=== PATIENT | female | born 1940 | race Caucasian/White ===

== ENCOUNTER 2023-05-14 13:45 | Emergency (ER) | payer MEDICARE, SELFPAY ==
--- NOTE | ~2023-05-14 | XR_ITS ---
EXAMINATION: XR chest 2V 05/14/2023 14:25 INDICATION: Cough. Coarse breath sounds. PROCEDURE: 2 view chest COMPARISON: No prior studies for comparison. FINDINGS: The lungs are clear. The cardiomediastinal silhouette is within normal limits. There are no pleural effusions. There is no pneumothorax suspected. IMPRESSION: 1: NO ACUTE CARDIOPULMONARY DISEASE. Reviewed, dictated and finalized at location B. [employer]
[2023-05-14 14:01] VITALS: BP 153/65; PULSE 100; RESP 20; TEMP 36.4; O2SAT 98
--- NOTE | 2023-05-14 14:07 | ED.URI ---
HPI - URI/Sore Throat General Chief Complaint: Upper Respiratory Infection Stated Complaint: cough/cold Time Seen by Provider: 05/14/23 14:07 Source: patient Mode of arrival: ambulatory Limitations: no limitations History of Present Illness HPI Narrative: 83 yo F presents with c/o cough, chest congestion for 5 days. Afebrile. Denies CP/SOB. Not getting any OTC meds to treat symptoms. Had neg covid test at assisted living. Pt's daughter said nurse at assisted livign said lungs dont sound good . All systems reviewed and negative except as noted above. Related Data Home Medications Medication Instructions Recorded Confirmed escitalopram oxalate 10 mg tablet mg 05/14/23 lamotrigine 25 mg tablet mg 05/14/23 lurasidone 20 mg tablet mg 05/14/23 Allergies Allergy/AdvReac Type Severity Reaction Status Date / Time No Known Allergies Allergy Verified 05/14/23 14:05 Review of Systems Review of Systems: CONSTITUTIONAL: Denies fever, chills, or sweats. EYES: Denies visual changes, redness, or discharge. ENT: Reports rhinorrhea, congestion. Denies sore throat, or otalgia. CARDIOVASCULAR: Denies chest pain, palpitations, or edema. RESPIRATORY: Reports cough. Denies dyspnea. GASTROINTESTINAL: Denies abdominal pain, nausea, vomiting, or diarrhea. GENITOURINARY: Denies dysuria or hematuria. SKIN: Denies rash or itching. MUSCULOSKELETAL: Denies back pain, joint pain, or myalgia. NEUROLOGIC: Denies headache, numbness, or weakness. PSYCHIATRIC: Denies anxiety or depression. All other systems reviewed are negative, except as documented in HPI. PMFSH Comments At time of signature, agree with nursing past medical, surgical, social and family history. There is no relevant family history pertinent to the presenting complaint. Exam Narrative: GENERAL: This is a well-nourished, well-developed patient, in no apparent distress. HEAD: normocephalic, atraumatic. EYES: PERRL. Sclera clear/white. Vision is grossly intact. EARS: External ears normal, auditory canals clear and without drainage, TMs normal without perforation. Hearing grossly intact. NOSE: External nose normal with clear nasal drainage, erythema to bilateral nares. THROAT: Mucous membranes moist, posterior pharynx clear. NECK: Neck supple, non-tender without lymphadenopathy, masses or thyromegaly. CARDIOVASCULAR: Regular rate and rhythm without murmurs, gallops, or rubs. RESPIRATORY: Mildly coarse lung sounds throughout all lung barone. Breath sounds equal bilaterally. No wheezes, rales, or rhonchi. SKIN: warm, Dry, intact with no suspicious lesions or rash, good texture and turgor. NEURO: awake, alert, and oriented to person, place and time. There were no obvious focal neurologic abnormalities. EXTREMITIES: No joint tenderness, effusion, or edema noted. Course Course Level of Care: Express Care Visit Vital Signs Vital signs: Vital Signs Temperature 36.4 C 05/14/23 14:01 Pulse Rate 100 05/14/23 14:01 Respiratory Rate 20 05/14/23 14:01 Blood Pressure 153/65 H 05/14/23 14:01 Pulse Oximetry 98 05/14/23 14:01 Oxygen Delivery Room Air 05/14/23 14:01 Temperature 36.4 C 05/14/23 14:01 Pulse Rate 100 05/14/23 14:01 Respiratory Rate 20 05/14/23 14:01 Blood Pressure 153/65 H 05/14/23 14:01 Pulse Oximetry 98 05/14/23 14:01 Oxygen Delivery Room Air 05/14/23 14:01 Reviewed MDM - URI/Sore Throat MDM Narrative Medical decision making narrative: Mildly coarse lung sounds on auscultation. Chest x-ray normal. Patient well appearing, no shortness of breath. Recommend Mucinex and Tessalon Perle. Patient is aware of diagnosis, understands and agrees to treatment plan. Anticipatory guidance given. Patient agrees to follow-up as directed and is aware of reasons to seek care at the emergency department. Portions of this record may have been created with voice recognition software Differential Diagnosis Differential maine
== END 2023-05-14 14:46 | disposition home or self-care (01) ==
PROVIDERS: Emergency Provider Nurse Practitioner Family; PCP Internal Medicine Infectious Disease
DX: J06.9 Acute upper respiratory infection, unspecified (principal); R05.9 Cough, unspecified
CPT/HCPCS: 71046; 99213; G0463